=== PATIENT | female | born 1985 | race Caucasian/White ===

== ENCOUNTER 2019-05-02 11:04 | Emergency (ER) | payer OTHER ==
[~2019-05-02] VITALS: Ht 162.6 cm; Wt 122.5 kg
[~2019-05-02 11:04] MED LIST: ALBUTEROL2.5 MG/31 INH; BUSPIRONE HCL10 MG PO; IBUPROFEN 800800 M1 PO; IMITREX 25 MG T25 MG PO; TYLENOL EXTRA500 MG PO; UNISOM25 MG PO; VENTOLIN HFA 1818 GM INH
[2019-05-02] MEDS ORDERED: NAPROSYN500 MG PO (12:54)
[2019-05-02] MEDS ORDERED: NORFLEX100 MG PO (12:54)
[2019-05-02 12:58] VITALS: BP 132/75
== END 2019-05-02 13:08 | disposition home or self-care (01) ==
LOC: ER 11:04
DX: S13.4XXA Sprain of ligaments of cervical spine, initial encounter (principal); S33.5XXA Sprain of ligaments of lumbar spine, initial encounter; S43.401A Unspecified sprain of right shoulder joint, initial encounter; J45.909 Unspecified asthma, uncomplicated; G43.909 Migraine, unspecified, not intractable, without status migrainosus; F41.9 Anxiety disorder, unspecified; G89.29 Other chronic pain; M54.9 Dorsalgia, unspecified; Z91.040 Latex allergy status; Z87.891 Personal history of nicotine dependence; V89.2XXA Person injured in unspecified motor-vehicle accident, traffic, initial encounter; Y92.89 Other specified places as the place of occurrence of the external cause; Y93.89 Activity, other specified; Y99.8 Other external cause status